=== PATIENT | male | born 1955 | race Caucasian/White ===

== ENCOUNTER 2024-11-01 09:41 | Outpatient (CLI) | payer MEDICARE ==
--- NOTE | 2024-11-01 10:55 | RADIOLOGY REPORT ---
CLINICAL INDICATION: EFFUSION, LEFT ANKLE;PRIMARY OSTEOARTHRITIS TECHNIQUE: Noncontrast CT of the left lower extremity was performed. Sagittal and coronal reformatted images are provided. COMPARISON: None CT Dose: CTDI volume is 14.4 mGy. Dose-length product is 343.4 mGy*cm FINDINGS: Patient is status post a total ankle replacement. The components are well aligned and well seated. The polyethylene liner is not displaced. There is a 1.8 cm cyst in the anterior aspect of the talus deep to the talar component. There is no circumferential lucency noted in the tibial or belinda ar component. No periprosthetic fracture. No cortical destruction. There is midfoot and hindfoot art hrosis. Vascular calcifications noted. IMPRESSION: 1. Status post total ankle replacement. 1.8 cm cyst in the anterior talus deep to the talar component of the arthroplasty. No circumferential lucency to suggest hardware loosening. Satisfactory alignme nt of the ankle prosthesis. All CT scans at this medical facility are performed using dose modulation techniques as appropriate t o a performed exam including the following: Automated exposure control was utilized; adjustment of th e MA and/or KV according to patient size; and use of iterative reconstruction technique.
== END 2024-11-01 23:59 | disposition home or self-care (01) ==
LOC: RAD 09:41
PROVIDERS: ATTEND Podiatrist Foot & Ankle Surgery
DX: T84.038A Mechanical loosening of other internal prosthetic joint, initial encounter (principal); M25.472 Effusion, left ankle; M19.079 Primary osteoarthritis, unspecified ankle and foot; G62.9 Polyneuropathy, unspecified; M61.572 Other ossification of muscle, left ankle and foot; M25.872 Other specified joint disorders, left ankle and foot; X58.XXXA Exposure to other specified factors, initial encounter; Y93.89 Activity, other specified; Y92.89 Other specified places as the place of occurrence of the external cause; Y99.8 Other external cause status
CPT/HCPCS: 73700